=== PATIENT | female | born 1950 | race Caucasian/White ===

== ENCOUNTER 2019-07-08 14:00 | Outpatient (CLI) | payer BC | END 2019-07-08 14:01 | disposition critical access hospital (66) | LOC: EMS 14:00 | PROVIDERS: ATTEND Surgery | DX: R04.0 Epistaxis (principal) | CPT/HCPCS: A0425; A0429 ==

== ENCOUNTER 2019-07-08 14:18 | Emergency (ER) | payer BC ==
[2019-07-08] MEDS ORDERED: COCAINE 4 ML BOTTLE TOP STA (14:26)
[2019-07-08 14:27] VITALS: BP 157/66
--- NOTE | 2019-07-08 14:27 | ED Physician Documentation ---
PD HPI HEENT - Stated complaint Stated Complaint: NOSE BLEED - History obtained from History obtained from: Patient (68-year-old woman with history of nasal allergies and using the Flonase presents with a profuse nosebleed over the last hour mostly from the right naris. No dizziness or nausea. She is never had this before.) Review of Systems Constitutional: denies: Fever, Chills Nose: denies: Rhinorrhea / runny nose, Congestion Throat: denies: Sore throat Cardiac: denies: Chest pain / pressure, Palpitations PD PAST MEDICAL HISTORY - Present Medications Home Medications: Ambulatory Orders Medication Instructions Recorded Confirmed Fluticasone Furoate [Flonase 2 spray DAPHNEY DAILY 07/08/19 07/08/19 Sensimist] Latanoprost 0.005% Ophth Drops 1 drops EACHEYE DAILY PM 07/08/19 07/08/19 [Xalatan Ophth Drops] Simvastatin 80 mg PO DAILY 07/08/19 07/08/19 - Allergies Allergies/Adverse Reactions: Allergies Allergy/AdvReac Type Severity Reaction Status Date / Time Iodinated Contrast Media Allergy Unknown Verified 07/08/19 14:31 PD ED PE NORMAL - Vitals Vital signs reviewed: Yes - General General: Alert and oriented X 3, No acute distress - HEENT HEENT: Other (No active bleeding on exam initially, there is a knuckle of vein on the right septum that looks like it has sequela of recent bleeding. She has a deviated septum to the left.) - Neck Neck: Supple, no meningeal sign, No bony TTP - Neuro Neuro: Alert and oriented X 3, Normal speech - Psych Psych: Normal mood, Normal affect Results - Vitals Vitals: Vital Signs - 24 hr 07/08/19 14:20 Temperature 36.8 C Heart Rate 103 H Respiratory 18 Rate Blood Pressure 157/66 H O2 Saturation 96 Oxygen O2 Source Room air Procedures - Epistaxis Site: Right, Anterior Preparation: Clots removed, Cocaine (and txa) Treatment: Silver Nitrate Other: Observed - no bleeding Departure - Departure Disposition: 01 Home, Self Care Clinical Impression: Epistaxis Condition: Good Record reviewed to determine appropriate education?: Yes Instructions: Nosebleed Comments: Talk with your primary care physician about referral to ENT. Return for new or worsening symptoms.
[2019-07-08] MEDS ORDERED: TRANEXAMIC ACID 1,000 MG/10 ML VIAL NAS STA (15:07)
== END 2019-07-08 16:06 | disposition home or self-care (01) ==
LOC: ED 14:18
DX: R04.0 Epistaxis (principal); J34.2 Deviated nasal septum
CPT/HCPCS: 30901; 99281; 99283

== ENCOUNTER 2019-07-16 02:27 | Emergency (ER) | payer BC ==
--- NOTE | 2019-07-16 02:31 | ED Physician Documentation ---
History of Present Illness - Stated complaint Stated Complaint: NOSEBLEED - History obtained from History obtained from: Patient (the patient is a -year-old female who presents with a chief complaint of epistaxis approximately 1 week ago she presented to the emergency department via ambulance for epistaxis she was treated conservatively without packing and discharged home. She reports tonight that she began sneezing and then started noticing some bleeding from her right nose s he tried pinching her nose at home without resolution of the bleeding and she presents here to the ER she denies taking any coagulants or antiplatelets or any blood thinners.She reports this is her second episode of epistaxis she has an ENT appointment but not until 1 month from now.) Review of Systems Constitutional: reports: Reviewed and negative Eyes: reports: Reviewed and negative Ears: reports: Reviewed and negative Nose: reports: Epistaxis Throat: reports: Reviewed and negative Cardiac: reports: Reviewed and negative Respiratory: reports: Reviewed and negative GI: reports: Reviewed and negative : reports: Reviewed and negative Skin: reports: Reviewed and negative Musculoskeletal: reports: Reviewed and negative Neurologic: reports: Reviewed and negative Psychiatric: reports: Reviewed and negative Endocrine: reports: Reviewed and negative Immunocompromised: reports: Reviewed and negative PD PAST MEDICAL HISTORY - Past Medical History Cardiovascular: High cholesterol HEENT: Glaucoma - Present Medications Home Medications: Ambulatory Orders Medication Instructions Recorded Confirmed Fluticasone Furoate [Flonase 2 spray DAPHNEY DAILY 07/08/19 07/16/19 Sensimist] Latanoprost 0.005% Ophth Drops 1 drops EACHEYE DAILY PM 07/08/19 07/16/19 [Xalatan Ophth Drops] Simvastatin 80 mg PO DAILY 07/08/19 07/16/19 - Allergies Allergies/Adverse Reactions: Allergies Allergy/AdvReac Type Severity Reaction Status Date / Time Iodinated Contrast Media Allergy Unknown Verified 07/08/19 14:31 - Social History Does the pt smoke?: No Smoking Status: Never smoker Does the pt drink ETOH?: Yes Does the pt have substance abuse?: No - Immunizations Immunizations are current?: No Immunizations: TDAP >10years/unknown PD ED PE NORMAL - Vitals Vital signs reviewed: Yes - General General: Alert and oriented X 3, No acute distress, Well developed/nourished - HEENT HEENT: Atraumatic, PERRL, Ears normal, Moist mucous membranes, Pharynx benign, Dentition benign, Other (Mild bleeding in the right nares anteriorly, no evidence of posterior bleeding patient is in no distress.) - Neck Neck: Supple, no meningeal sign - Cardiac Cardiac: RRR, No murmur - Respiratory Respiratory: Clear bilaterally - Abdomen Abdomen: Normal bowel sounds, Soft, Non tender, Non distended - Derm Derm: Warm and dry - Extremities Extremities: No deformity - Neuro Neuro: Alert and oriented X 3 - Psych Psych: Normal mood, Normal affect Results - Vitals Vitals: Vital Signs - 24 hr 07/16/19 02:34 Temperature 36.5 C Heart Rate 94 Respiratory 18 Rate Blood Pressure 185/98 H O2 Saturation 100 Oxygen O2 Source Room air Procedures - Epistaxis Site: Right, Anterior Preparation: Clots removed, Afrin, Clamp / pressure applied Other: Observed - no bleeding, Pt tolerated well, Referred to ENT PD MEDICAL DECISION MAKING - ED course Complexity details: considered differential (anterior epistaxis. bleeding controlled with conservative measures with direct pressures and afrin. TXA was ordered as well as merocel for packing. however patient was observed for approximately 90 minutes with bleeding controlled. examined nares multiple times to look for active bleeding however only oozing noted so TXA nor Silver Nitrate was used. ) Departure - Departure Disposition: 01 Home, Self Care Clinical Impression: Epistaxis, recurrent Condition: Stable Instructions: Nosebleed Follow-Up: Waldemar Cohn MD [Primary Care Provider] - 07/16/19 BING HARO MD [Physician No Access] - Comments: use afrin as needed. Apply direct pressure as needed if nose bleed returns. Call an ENT tomorrow to schedule follow up.
[2019-07-16] MEDS ORDERED: OXYMETAZOLINE HCL 100 SPRAYS BOTTLE NAS STA (02:34)
[2019-07-16] MEDS ORDERED: BACITRACIN ZINC OINT 1 PACKET TOP STA (03:09)
[2019-07-16] MEDS: TRANEXAMIC ACID 1,000 MG in SODIUM CHLORIDE 0.9% 100ML 100 ML IV STA ×2 (03:26→03:32)
[2019-07-16] MEDS: TRANEXAMIC ACID 1,000 MG/10 ML VIAL NAS STA ×2 (03:32→04:11)
[2019-07-16 03:56] VITALS: BP 135/73
== END 2019-07-16 03:56 | disposition home or self-care (01) ==
LOC: ED 02:27
DX: R04.0 Epistaxis (principal)
CPT/HCPCS: 30901; 99284; A9270

== ENCOUNTER 2020-02-15 16:44 | Emergency (ER) | payer BC ==
[2020-02-15] MEDS ORDERED: OXYMETAZOLINE HCL 100 SPRAYS BOTTLE NAS STA (16:56)
[2020-02-15] MEDS ORDERED: SILVER NITRATE APPLICATOR TOP STA (17:02)
--- NOTE | 2020-02-15 17:04 | ED Physician Documentation ---
PD HPI HEENT - Stated complaint Stated Complaint: NOSE BLEED - Chief complaint Chief Complaint: Heent - History obtained from History obtained from: Patient - Additional information Additional information: 69-year-old woman with history of epistaxis, has been cauterized in the past. Started again today while bending over. It is painless. She tried some oxymetazoline which slowed it down but did not completely resolve it. She is not anticoagulated. Review of Systems Constitutional: reports: Reviewed and negative Ears: reports: Reviewed and negative Throat: reports: Reviewed and negative Cardiac: reports: Reviewed and negative PD PAST MEDICAL HISTORY - Past Medical History Cardiovascular: High cholesterol HEENT: Glaucoma - Present Medications Home Medications: Ambulatory Orders Medication Instructions Recorded Confirmed Fluticasone Furoate [Flonase 2 spray DAPHNEY DAILY 07/08/19 07/16/19 Sensimist] Latanoprost 0.005% Ophth Drops 1 drops EACHEYE DAILY PM 07/08/19 07/16/19 [Xalatan Ophth Drops] Simvastatin 80 mg PO DAILY 07/08/19 07/16/19 - Allergies Allergies/Adverse Reactions: Allergies Allergy/AdvReac Type Severity Reaction Status Date / Time Iodinated Contrast Media Allergy Unknown Verified 02/15/20 16:47 - Social History Does the pt smoke?: No Smoking Status: Never smoker Does the pt drink ETOH?: Yes Does the pt have substance abuse?: No - Immunizations Immunizations are current?: No Immunizations: TDAP >10years/unknown PD ED PE NORMAL - Vitals Vital signs reviewed: Yes - General General: Alert and oriented X 3, No acute distress - HEENT HEENT: Other (There is just a touch of venous ooze from right Kiesselbach's plexus. There are some clots, so initially the bleeding site is hard to identify.) - Neck Neck: Supple, no meningeal sign, No bony TTP - Neuro Neuro: Alert and oriented X 3, Normal speech Results - Vitals Vitals: Vital Signs - 24 hr 02/15/20 16:47 Temperature 36.8 C Heart Rate 92 Respiratory 18 Rate Blood Pressure 179/81 H O2 Saturation 99 Oxygen O2 Source Room air Procedures - Epistaxis Site: Right (Initially clots were removed, then we put some cotton ball with lidocaine with epinephrine up there and let it sit for a minute. On reexamination I really could not see a spot with obvious recent active bleeding.) Other: Other (There was a spot that I saw after that and was cauterized but,Subsequently is started bleeding again, and then TXA soaked cottonball was placed in there and after time was removed and she was observed for a prolonged period without recurrent bleeding.) Departure - Departure Disposition: 01 Home, Self Care Clinical Impression: Epistaxis Condition: Good Instructions: ED Nosebleed Follow-Up: GAVIN NARVAEZ [Physician No Access] - Comments: Follow-up with your ENT this week. Return if worsening. If he cannot get in with the ENT another option would be with the oral maxillofacial surgeon in [place] who has some of that specialized equipment as well.
[2020-02-15] MEDS ORDERED: TRANEXAMIC ACID 1,000 MG/10 ML VIAL NAS STA (17:39)
[2020-02-15 18:42] VITALS: BP 188/82
== END 2020-02-15 18:42 | disposition home or self-care (01) ==
LOC: ED 16:44
DX: R04.0 Epistaxis (principal)
CPT/HCPCS: 30901; 99282; 99283; A9270

== ENCOUNTER 2023-04-21 16:54 | Emergency (ER) | payer BC ==
[2023-04-21 17:18] VITALS: O2SAT 100
--- NOTE | 2023-04-21 18:46 | ED Physician Documentation ---
History of Present Illness - Stated complaint Stated Complaint: R HIP PX - Chief complaint Chief Complaint: Ext Problem - History obtained from History obtained from: Patient, Family - History of Present Illness Pain level max: 6 Pain level now: 5 - Additonal information Additional information: Patient is a 72-year-old female who presents to the emergency department with several days of right lower lumbar back pain. Worse with movement, better with rest. Does not have a history of any falls or trauma. She took Advil at home without relief. She states it feels like mostly spasming in her back. Like somebody is grabbing, squeezing and turning the muscle. It becomes worse when standing. No loss of bowel or bladder control. No IV drug use. No fevers. No chills. No numbness or tingling. No saddle anesthesia. Review of Systems Constitutional: denies: Fever, Chills Respiratory: denies: Cough GI: denies: Vomiting : denies: Dysuria, Frequency, Hesitancy, Incontinent Skin: denies: Rash Musculoskeletal: denies: Neck pain Neurologic: denies: Focal weakness, Numbness, Headache PD PAST MEDICAL HISTORY - Past Medical History Past Medical History: Yes Cardiovascular: High cholesterol HEENT: Glaucoma Musculoskeletal: Osteoarthritis - Past Surgical History Past Surgical History: No - Present Medications Home Medications: Ambulatory Orders Medication Instructions Recorded Confirmed Latanoprost 0.005% Ophth Drops 1 drops EACHEYE DAILY PM 07/08/19 04/21/23 [Xalatan Ophth Drops] Simvastatin 40 mg PO DAILY 07/08/19 04/21/23 Adalimumab [Humira(Cf) Pen] See Rx Instructions .ROUTE .COMPLEX 04/21/23 04/21/23 Albuterol Sulfate [Proair 90 mcg IH Q4HR PRN 04/21/23 04/21/23 Digihaler] HYDROcod/ACETAM 5/325 [[place] 5/325] 1 - 2 ea PO Q6H PRN #14 tablet 04/21/23 Irbesartan 75 mg PO DAILY 04/21/23 04/21/23 Zolpidem Tartrate [Ambien] 10 mg PO HS PRN 04/21/23 04/21/23 methocarbamoL [Robaxin] 500 mg PO Q6H PRN #20 tablet 04/21/23 - Allergies Allergies/Adverse Reactions: Allergies Allergy/AdvReac Type Severity Reaction Status Date / Time Iodinated Contrast Media Allergy Unknown Verified 04/21/23 17:12 - Social History Does the pt smoke?: No Smoking Status: Never smoker Does the pt drink ETOH?: Yes Does the pt have substance abuse?: No - Immunizations Immunizations are current?: No Immunizations: TDAP >10years/unknown PD ED PE NORMAL - Vitals Vital signs reviewed: Yes - General General: Alert and oriented X 3, No acute distress - HEENT HEENT: Moist mucous membranes - Neck Neck: Supple, no meningeal sign - Cardiac Cardiac: RRR, Strong equal pulses - Respiratory Respiratory: No respiratory distress, Clear bilaterally - Back Back: No spinal TTP (No midline tenderness to palpation or percussion. No step- off or deformity. Paraspinal spasm right lower lumbar. Reproduces pain. No tenderness over the sacroiliac joint.) - Extremities Extremities: No deformity, No edema, No calf tenderness / cord - Neuro Neuro: Alert and oriented X 3, No motor deficit, No sensory deficit, Other (Normal bilateral lower extremity patellar and ankle jerk reflexes. Normal great toe extension bilaterally. no saddle anesthesia) Results - Vitals Vitals: Vital Signs - 24 hr 04/21/23 04/21/23 17:09 19:34 Temperature 36.2 C L Heart Rate 73 74 Respiratory 18 16 Rate Blood Pressure 178/80 H 151/79 H O2 Saturation 100 100 Oxygen O2 Source Room air PD Medical Decision Making - ED course Complexity details: re-evaluated patient, considered differential (No cauda equina, no spinal epidural abscess, no fracture, no aortic dissection or evidence of aneursym rupture), d/w patient ED course: 72-year-old female with right-sided low back spasm. No known injury. No midline tenderness to palpation or percussion. No bony tenderness. No falls. No trauma. No indication for acute imaging. We will trial on pain medication muscle relaxants. 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 Patient is well-appearing, nontoxic. No IV drug use. No fevers. No evidence of cauda equina, epidural abscess. Patient counseled regarding signs and symptoms for which I believe and urgent re-evaluation would be necessary. Patient with good understanding of and agreement to plan and is comfortable going home at this time This document was made in part using voice recognition software. While efforts are made to proofread this document, sound alike and grammatical errors may occur. Departure - Departure Disposition: 01 Home, Self Care Clinical Impression: Lumbar paraspinal muscle spasm Condition: Good Instructions: ED Spasm Back No Trauma Follow-Up: ELIZABETH IRVING MD [Primary Care Provider] - Within 1 week Prescriptions: HYDROcod/ACETAM 5/325 [[place] 5/325] 1 - 2 ea PO Q6H PRN #14 tablet PRN Reason: Pain methocarbamoL [Robaxin] 500 mg PO Q6H PRN #20 tablet PRN Reason: muscle spasm Comments: Please follow-up with your doctor for further care. Will try you on muscle relaxants and pain medication for home. Your prescriptions were sent to [facility] in [place]. You should improve over the next few days, if you are not improved your doctor may want to perform imaging. I am prescribing a short course of narcotic pain medication for you. These are potentially dangerous and addictive medications that should be used carefully. These medications may constipate you. Take an [id number] stool softener (docusate) twice daily with plenty of water while taking these medications. If you go 24 hours without a bowel movement, take [id number] miralax, per package instructions. Do not drink or drive while taking these medications. If you received narcotic or sedating medications while in the emergency department, do not drive for 24 hours. Store this medication in a safe, secure place and out of reach of children. It is a violation of federal law to give or sell this medication to another person or to use in a manner other than prescribed. The ED will not refill narcotic prescriptions, including prescriptions lost or stolen. To dispose of unwanted medications: 1. [facility] at [address] [facility] in [place] has a medication drop box. They accept prescription medications (in pill form) Monday through Monday 9:00 a.m. to 5:00 p.m. 2. [facility] accepts prescription medications (in pill form only) for disposal year round. Call for more information. 3. Contact the [facility] for the next [facility] sponsored prescription drug collection event. , [phone], or [phone]; Forms: PCP List Discharge Date/Time: 04/21/23 19:35
[2023-04-21] MEDS: methocarbamoL 500 MG TABLET PO STA (19:10)
[2023-04-21] MEDS: oxyCODONE 5 MG TABLET PO STA (19:12)
[2023-04-21] MEDS: HYDROcod/ACETAM 5/325 MG TABLET PO STA (19:30)
[2023-04-21 19:38] VITALS: BP 151/79
== END 2023-04-21 19:35 | disposition home or self-care (01) ==
LOC: ED 16:54
DX: M62.830 Muscle spasm of back (principal); E78.00 Pure hypercholesterolemia, unspecified; Z79.899 Other long term (current) drug therapy
CPT/HCPCS: 99282; 99283; A9270